=== PATIENT | male | born 1995 | race Caucasian/White ===

== ENCOUNTER 2021-02-25 19:22 | Emergency (ER) | payer OTHER ==
[~2021-02-25] VITALS: Ht 172.7 cm; Wt 86.0 kg
[2021-02-25 19:27] VITALS: BP 114/82
[2021-02-25] MEDS ORDERED: ACETAMINOPHEN 325MG TABLET PO ONE (20:00)
[2021-02-25] MEDS ORDERED: AMOX-424 MT (21:47)
[2021-02-25] MEDS ORDERED: IBUP-2029 MT (21:47)
== END 2021-02-25 23:01 | disposition home or self-care (01) ==
LOC: ER 19:22
DX: S02.85XA Fracture of orbit, unspecified, initial encounter for closed fracture (principal); R51.9 Headache, unspecified; W18.30XA Fall on same level, unspecified, initial encounter; Y93.89 Activity, other specified; Y92.89 Other specified places as the place of occurrence of the external cause; Y99.8 Other external cause status
CPT/HCPCS: 70486; 99284